=== PATIENT | female | born 1990 | race Caucasian/White ===

== ENCOUNTER 2021-08-06 07:33 | Inpatient (IN) ==
[2021-08-06] MEDS ORDERED: OXYTOCIN 30 UNITS/500 ML BAG IV PRN ×2 (08:41→09:06)
--- NOTE | 2021-08-06 09:24 | History & Physical Report ---
Date of Service August 06, 2021 Assessment & Plan (1) 40 weeks gestation of : (2) PROM (premature rupture of membranes): Plan: Discussed situation with the patient and Dr. Blum who is assuming care of this patient. Offered pit now or short course of expectant management. Patient choose expectant management--Dr. Blmu allowing 4 hours. Recommend pitocin after that. gbs neg. fetus category one. anticipate . Admission and Anticipated Discharge Date Admission Date: August 06, 2021 History of Present Illness Chief Complaint: rom Primary Care Provider: NO PCP Patient is a with iup at 40 1/7 weeks who present c/o lof starting at 6:30 am. Notes +fm, a little blood tinge, no contractions. uncomplicated. Blood Type O Positive 12/24/20 Antibody Screen NEGATIVE 12/24/20 Hemoglobin 10.3 g/dL (12.0-16.0) L 05/13/21 Hematocrit 33.3 % (37-47) L 05/13/21 Mean Corpuscular Volume 82.3 fL (80-100) 12/24/20 Platelet Count 239 K/uL (130-400) 12/24/20 Rubella IgG Antibody Immune (Immune) 12/24/20 Rapid Plasma Reagin Nonreactive (Nonreactive) 12/24/20 Hepatitis B Surface Antigen Neg (Neg) 12/24/20 HIV (1&2) Ab and P24 Ag, 4th Gener Neg (Neg) 12/24/20 Glucose 1 Hour 50 gm Load 110 mg/dl (70-130) 05/13/21 OB Optional Labs: Chlamydia trachomatis RNA NOT DETECTED (NOT DETECTED) 12/24/20 Neisseria gonorrhoeae RNA NOT DETECTED (NOT DETECTED) 12/24/20 low risk panorama cf/sma neg gbs neg Allergies Allergy/AdvReac Type Severity Reaction Status Date / Time Sulfa (Sulfonamide Allergy Mild hives Verified 08/06/21 07:54 Antibiotics) Home Medications Medication Instructions Recorded Confirmed Type docusate sodium 100 mg capsule 100 mg PO BID 08/06/21 08/06/21 History (Colace) doxylamine succinate 25 mg tablet 25 mg PO HS PRN 08/06/21 08/06/21 History (Unisom (doxylamine)) famotidine 20 mg tablet (Pepcid) 20 mg PO DAILY 08/06/21 08/06/21 History ferrous sulfate 325 mg (65 mg 325 mg PO DAILY 08/06/21 08/06/21 History iron) tablet (iron) prenat.vits,josiane,[id number] 1 tab PO DAILY 08/06/21 08/06/21 History pyridoxine (vitamin B6) 100 mg 100 mg PO DAILY 08/06/21 08/06/21 History tablet (Vitamin B-6) Patient History Medical History Varicella vaccination Surgical History [place] teeth extracted Family History Father Hypertension Grandmother (Maternal) Hypertension Mother Carlos's disease Aunt Breast cancer Other Colorectal cancer Denies family history of Ovarian cancer Prostate cancer Social History Smoking Status: Never smoker Second Hand Exposure: Yes; Hx Alcohol Use: No Hx Substance Use: No Preferred Language: Sinhala Communication Ability: Effective Visual Impairment: No Limitations Wood Scrap Handler Required: No Beliefs That Will Affect Care: None marital status: marital status details: Arturo Shepherd (27) [phone] Current Living Situation: Spouse Current Living Situation Comment: lives with , no pets current occupational status: employed 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 Other Information That Helps Us Care for You: No Feels Safe at Home: Yes Safety Concerns: Feels Safe At This Time OB History g1--present STUNT MAN History noncontributory Physical Exam Constitutional: WD/WN, vitals as above Gastrointestinal (Abdomen): soft, gravid, nt Psychiatric: A+Ox3, euthymic affect Genitourinary: sse--+pool, fern sve--3/80/-2 toco--regina efm--140s with mod varibility, accels to 160s, no decels Results & Data ([place]) Vital Signs (Past 12 Hours) Vital Signs Temp Pulse Resp BP 08/06/21 08:01 36.6 C 18 08/06/21 07:48 112 H 121/85 Coding Level of Care Code None Diagnoses 40 weeks gestation of Z3A.40 PROM (premature rupture of membranes) O42.90
[2021-08-06 09:25] LABS: Hematocrit (blood only) 35.3 % (37-47); Mean Corpuscular Hemoglobin 25.1 pg (25-34); Mean Corpuscular Hgb Conc 31.2 g/dL (32-36); Mean Corpuscular Volume 80.4 fL (80-100); Mean Platelet Volume 11.6 fL (7.4-10.4); Platelet Count 194 K/uL (130-400); RDW Coefficient of Variation 15.5 % (11.5-14.5); RDW Standard Deviation 45.7 fL (36.4-46.3); Red Blood Count 4.39 M/uL (4.2-5.4); White Blood Count 10.15 K/uL (4.8-10.8)
[2021-08-06] MEDS: LACTATED RINGER'S 1,000 ML IV PRN ×4 (10:39→18:40)
--- NOTE | 2021-08-06 11:21 | Labor Progress Brief Note ---
Date of Service August 06, 2021 Subjective denies feeling ctx Assessment & Plan (1) PROM (premature rupture of membranes): (2) Encounter for induction of labor: Plan: c/w pit, fhts categ 1. couple aware that i am taking over care. they deny questions. Admission and Anticipated Discharge Date Admission Date: August 06, 2021 Physical Exam Constitutional: WD/WN, vitals as above Genitourinary: OB Exam Monitor Tracing: + external FHT monitor used, + external uterine monitor used (no ctx), + category I and + normal FHT variability pitocin running Results & Data ([place]) Vital Signs (Past 12 Hours) Vital Signs Temp Pulse Resp BP 08/06/21 11:17 76 114/80 08/06/21 10:41 97.9 F 81 20 132/77 08/06/21 09:12 97.9 F 20 08/06/21 08:01 97.9 F 18 08/06/21 07:48 112 H 121/85 Coding Level of Care Code None Diagnoses PROM (premature rupture of membranes) O42.90 Encounter for induction of labor Z34.90
--- NOTE | 2021-08-06 13:10 | Communication Note ---
Date of Service: August 06, 2021 Notified by nurse of 2 elevated bps. Then normalized. Patient without sx per nurse. Urine dip on admission was neg for protein. will monitor and if persists, plan CMP.
[2021-08-06] MEDS ORDERED: CALCIUM CARBONATE 500 MG CHEWABLE TAB PO PRN (14:35)
[2021-08-06] MEDS: ACETAMINOPHEN 325 MG TAB PO PRN ×2 (14:41→19:39)
[2021-08-06] MEDS ORDERED: BUPIVACAINE 0.25% 30 ML VIAL ONE (15:29)
[2021-08-06] MEDS ORDERED: SODIUM CHLORIDE 0.9% INJ 10 ML VIAL ONE (15:29)
[2021-08-06] MEDS ORDERED: ePHEDrine sulfate 50 MG/ML AMP ONE (15:29)
[2021-08-06] MEDS ORDERED: fentaNYL citrate 100 MCG/2 ML VIAL ONE (15:30)
[2021-08-06] MEDS ORDERED: fentaNYL 2MCG/ML ROPIVACAINE 1.25MG/ML 100 ML BAG EPI ONE (15:30)
--- NOTE | 2021-08-06 16:19 | Anesthesiology Consultation ---
Date of Service August 06, 2021 Assessment & Plan (1) Encounter for pre-operative examination: Chart Review Chart Review: Acceptable Risk for Labor Epidural Consults Requested none ASA ASA2 Proposed Anesthesia Anesthesia Type: Labor Epidural Risk / Benefits Reviewed With: PT / POA / Parent / Guardian, Accepts Plan and Informed Consent Obtained History Height/Weight Height: 5 ft 2 in Weight: 95.708 kg Allergies Allergy/AdvReac Type Severity Reaction Status Date / Time Sulfa (Sulfonamide Allergy Mild hives Verified 08/06/21 07:54 Antibiotics) Medications Home Medications Medication Instructions Recorded Confirmed Last Taken docusate sodium 100 mg capsule 100 mg PO BID 08/06/21 08/06/21 07/30/21 (Colace) doxylamine succinate 25 mg tablet 25 mg PO HS PRN 08/06/21 08/06/21 08/05/21 (Unisom (doxylamine)) famotidine 20 mg tablet (Pepcid) 20 mg PO DAILY 08/06/21 08/06/21 08/05/21 ferrous sulfate 325 mg (65 mg 325 mg PO DAILY 08/06/21 08/06/21 07/30/21 iron) tablet (iron) prenat.vits,josiane,[id number]-oodz-[id number] 1 tab PO DAILY 08/06/21 08/06/21 07/30/21 pyridoxine (vitamin B6) 100 mg 100 mg PO DAILY 08/06/21 08/06/21 08/05/21 tablet (Vitamin B-6) Active Medications Generic Name Dose Route Start Last Admin Trade Name Freq PRN Reason Stop Dose Admin Acetaminophen 650 mg 08/06/21 14:35 08/06/21 14:41 Acetaminophen 325 Mg Tab PO 09/05/21 14:34 650 mg Q4H PRN Administration Headache Lactated Ringer's 1,000 mls @ 125 mls/hr 08/06/21 08:41 08/06/21 16:03 Lr IV 08/08/21 08:40 999 mls/hr .Q8H PRN Infusion L&D Protocol Protocol Oxytocin 30 units in 500 mls @ 15 mls/hr 08/06/21 09:06 08/06/21 15:21 Pitocin IV 08/08/21 09:05 0.9 units/hr .Q24H PRN 15 mls/hr Labor Induction/Augmentation Titration Protocol 0.9 UNITS/HR Past Medical History Medical History Varicella vaccination Exercise / Class Metabolic Activity II 4-5 Yardwork/Stairs/Walk up hill Past Family History Family History Father Hypertension Grandmother (Maternal) Hypertension Mother Carlos's disease Aunt Breast cancer Other Colorectal cancer Denies family history of Ovarian cancer Prostate cancer Past Surgical History Surgical History [place] teeth extracted Past Anesthesia History No Hx of Anesthesia Complications and No Family Hx of Anesthesia Complications History of PONV No Hx of PONV and No Hx of Motion Sickness Social History Smoking Status: Never smoker Hx Alcohol Use: No Hx Substance Use: No Physical Exam Vital Signs Last Vital Signs Temp 97.5 F L 08/06/21 15:24 Pulse 63 08/06/21 16:12 Resp 16 08/06/21 15:24 BP 131/87 08/06/21 15:24 Pulse Ox 97 08/06/21 16:12 ENMT Mouth: no dentition abnormality Thyromental Distance: > or= 3.5 Finger Breadths Mallampati Class: II Neck normal visual inspection Respiratory normal respiratory effort Auscultation: lungs clear to auscultation bilaterally Cardiovascular Rate/Rhythm: regular rate and regular rhythm Testing Laboratory Results 08/06/21 09:02 Blood Type O Positive 08/06/21 09:02 Antibody Screen NEGATIVE 08/06/21 09:02
[2021-08-06] MEDS ORDERED: NALOXONE HCL 1 MG in SODIUM CHLORIDE 0.9% 1000ML 1,000 ML IV PRN (16:40)
[2021-08-06] MEDS ORDERED: NALOXONE HCL 0.4 MG/1 ML VIAL/CARP IV PRN (16:40)
[2021-08-06] MEDS ORDERED: fentaNYL 2MCG/ML ROPIVACAINE 1.25MG/ML 100 ML BAG EPI PRN (16:40)
[2021-08-06] MEDS ORDERED: ONDANSETRON INJ 2 MG/ML 2 ML VIAL IV PRN (16:40)
[2021-08-06] MEDS ORDERED: NALBUPHINE HCL INJ 10 MG/ML AMP IV PRN (16:40)
[2021-08-06] MEDS ORDERED: diphenhydrAMINE 50 MG/ML VIAL IV PRN (16:40)
[2021-08-06] MEDS ORDERED: ePHEDrine sulfate 50 MG/ML AMP IV PRN (16:40)
--- NOTE | 2021-08-06 17:16 | Labor Progress Brief Note ---
Date of Service August 06, 2021 Subjective feels comfortable with epidural Assessment & Plan (1) Encounter for induction of labor: (2) PROM (premature rupture of membranes): Plan: c/w pit, good cx change. will now check cmp due to bps. Admission and Anticipated Discharge Date Admission Date: August 06, 2021 Physical Exam Constitutional: WD/WN, vitals as above DBP elevated Genitourinary: Manual OB Exam: + cervical dilation 5 cm, + cervical effacement 90%, + station -2 and + amniotic fluid (arom forebag) OB Exam Monitor Tracing: + external FHT monitor used, + external uterine monitor used (q2-3), + category I and + normal FHT variability on pitocin Results & Data ([facility]) Vital Signs (Past 12 Hours) Vital Signs Temp Pulse Resp BP Pulse Ox 08/06/21 17:12 67 98 08/06/21 17:10 71 123/91 08/06/21 17:07 64 100 08/06/21 17:04 60 100/55 L 08/06/21 17:02 65 98 08/06/21 16:58 63 22 105/55 L 08/06/21 16:57 72 99 08/06/21 16:54 64 22 106/55 L 08/06/21 16:52 65 98 08/06/21 16:47 66 99 08/06/21 16:46 63 102/60 08/06/21 16:44 97.7 F 64 20 107/63 08/06/21 16:42 74 106/57 L 100 08/06/21 16:40 67 20 108/60 08/06/21 16:38 68 20 107/58 L 08/06/21 16:37 70 100 08/06/21 16:36 67 20 112/63 08/06/21 16:35 68 20 122/85 08/06/21 16:32 66 20 115/77 100 08/06/21 16:30 68 123/82 08/06/21 16:27 82 98 08/06/21 16:24 71 94 08/06/21 16:22 71 93 08/06/21 16:18 81 90 08/06/21 16:17 82 96 08/06/21 16:12 63 97 08/06/21 16:07 67 95 08/06/21 16:02 66 96 08/06/21 15:57 68 97 08/06/21 15:52 66 96 08/06/21 15:47 73 97 08/06/21 15:42 67 97 08/06/21 15:24 97.5 F L 73 16 131/87 08/06/21 14:43 97.5 F L 72 16 117/69 08/06/21 14:07 73 138/85 08/06/21 13:01 73 18 129/79 08/06/21 12:46 98.1 F 69 18 161/98 H 08/06/21 12:26 77 162/89 H 08/06/21 12:25 20 08/06/21 11:17 97.7 F 76 18 114/80 08/06/21 10:41 97.9 F 81 20 132/77 08/06/21 09:12 97.9 F 20 08/06/21 08:01 97.9 F 18 08/06/21 07:48 112 H 121/85 Coding Level of Care Code None Diagnoses Encounter for induction of labor Z34.90 PROM (premature rupture of membranes) O42.90
[2021-08-06 18:23] LABS: BUN Creatinine Ratio 14.7 (10-20); Calcium 8.3 mg/dl (8.5-10.1); Creatinine Clr Calc Pharmacy 179.9 ml/min; Est GFR (African American) 149.4 ml/min; Est GFR (Non-African American) 128.9 ml/min; Potassium 3.9 mmol/L (3.5-5.1)
[2021-08-06 18:25] LABS: Albumin Globulin Ratio 0.5 (0.9-2); Bilirubin,Total 0.3 mg/dl (0.2-1)
--- NOTE | 2021-08-06 20:20 | Labor Progress Brief Note ---
Date of Service August 06, 2021 Subjective feels some pressure Assessment & Plan (1) 40 weeks gestation of : (2) PROM (premature rupture of membranes): (3) Encounter for induction of labor: Plan: good cx change. fhts categ 1. anticip soon. Admission and Anticipated Discharge Date Admission Date: August 06, 2021 Physical Exam Constitutional: WD/WN, vitals as above Genitourinary: Manual OB Exam: + cervical dilation 9 cm, + cervical effacement 90% and + station + 1 OB Exam Monitor Tracing: + external FHT monitor used, + external uterine monitor used (q2-3), + category I and + normal FHT variability Results & Data ([facility]) Vital Signs (Past 12 Hours) Vital Signs Temp Pulse Resp BP Pulse Ox 08/06/21 20:13 82 87 L 08/06/21 20:12 74 97 08/06/21 20:07 76 97 08/06/21 20:06 74 85 L 08/06/21 20:03 72 125/88 08/06/21 20:02 79 100 08/06/21 19:57 74 97 08/06/21 19:56 80 89 L 08/06/21 19:52 80 93 08/06/21 19:49 93 H 133/75 08/06/21 19:47 79 95 08/06/21 19:42 77 98 08/06/21 19:37 74 93 08/06/21 19:34 71 120/79 08/06/21 19:32 88 96 08/06/21 19:27 72 98 08/06/21 19:22 65 96 08/06/21 19:18 66 107/66 08/06/21 19:17 67 98 08/06/21 19:12 67 97 08/06/21 19:07 66 97 08/06/21 19:02 97.7 F 64 18 99 08/06/21 18:57 74 98 08/06/21 18:52 72 100 08/06/21 18:49 63 132/73 08/06/21 18:47 67 99 08/06/21 18:42 64 99 08/06/21 18:37 66 99 08/06/21 18:33 63 20 125/71 08/06/21 18:32 70 99 08/06/21 18:27 65 98 08/06/21 18:24 20 08/06/21 18:22 65 100 08/06/21 18:20 71 89 L 08/06/21 18:19 59 L 131/77 08/06/21 18:17 64 98 08/06/21 18:12 60 99 08/06/21 18:07 69 98 08/06/21 18:04 60 139/81 08/06/21 18:02 64 100 08/06/21 18:00 20 08/06/21 17:57 63 99 08/06/21 17:52 61 99 08/06/21 17:48 61 20 113/68 08/06/21 17:47 61 99 08/06/21 17:42 65 99 08/06/21 17:37 60 100 08/06/21 17:32 67 97 08/06/21 17:27 72 89 L 08/06/21 17:25 70 88 L 08/06/21 17:22 65 96 08/06/21 17:17 77 99 08/06/21 17:14 64 20 122/69 08/06/21 17:12 67 98 08/06/21 17:10 71 123/91 08/06/21 17:07 64 100 08/06/21 17:04 60 100/55 L 08/06/21 17:02 65 98 08/06/21 16:58 63 22 105/55 L 08/06/21 16:57 72 99 08/06/21 16:54 64 22 106/55 L 08/06/21 16:52 65 98 08/06/21 16:47 66 99 08/06/21 16:46 63 102/60 08/06/21 16:44 97.7 F 64 20 107/63 08/06/21 16:42 74 106/57 L 100 08/06/21 16:40 67 20 108/60 08/06/21 16:38 68 20 107/58 L 08/06/21 16:37 70 100 08/06/21 16:36 67 20 112/63 08/06/21 16:35 68 20 122/85 08/06/21 16:32 66 20 115/77 100 18 16:30 68 123/82 08/06/21 16:27 82 98 08/06/21 16:24 71 94 08/06/21 16:22 71 93 12/18/21 16:18 81 90 08/06/21 16:17 82 96 08/06/21 16:12 63 97 08/06/21 16:07 67 95 08/06/21 16:02 66 96 08/06/21 15:57 68 97 08/06/21 15:52 66 96 08/06/21 15:47 73 97 08/06/21 15:42 67 97 08/06/21 15:24 97.5 F L 73 16 131/87 08/06/21 14:43 97.5 F L 72 16 117/69 08/06/21 14:07 73 138/85 08/06/21 13:01 73 18 129/79 08/06/21 12:46 98.1 F 69 18 161/98 H 08/06/21 12:26 77 162/89 H 08/06/21 12:25 20 08/06/21 11:17 97.7 F 76 18 114/80 08/06/21 10:41 97.9 F 81 20 132/77 08/06/21 09:12 97.9 F 20 Coding Level of Care Code None Diagnoses 40 weeks gestation of Z3A.40 PROM (premature rupture of membranes) O42.90 Encounter for induction of labor Z34.90
[2021-08-07] MEDS ORDERED: AMMONIA, AROMATIC INHAL 1 EA AMP INH ONE (01:25)
--- NOTE | 2021-08-07 02:08 | Delivery Summary ---
Vaginal Delivery Summary Date of Service August 07, 2021 Vaginal Delivery Summary and 2nd Degree LAC The patient dilated to complete and pushed to deliver a viable female Apgars 8 and 9 via over 2nd degree perineal laceration. Mouth and nose bulb suctioned at perineum. Shoulders and body delivered with ease. was vigorous and crying at . Cord clamped at 30 seconds of life and to maternal abdomen where the cord was then doubly clamped and cut. Placenta delivered spontaneously and intact, three-vessel cord. Hemostasis achieved with dilute pitocin and uterine massage and drainage of the bladder for approximately 75 cc under sterile conditions. Cervix and sulci intact. Laceration repaired in layers in routine fashion with 3-0 vicryl. EBL 300 cc. Mother and baby stable recovery[place] [facility] [place] Charge Delivery Type Details: and 2nd Degree LAC
[2021-08-07] MEDS ORDERED: OXYTOCIN 30 UNITS/500 ML BAG IV PRN (02:12)
[2021-08-07] MEDS ORDERED: DIPHTHERIA/TETANUS/PERTUSSIS 0.5 ML SYR/VIAL IM ONE (02:12)
[2021-08-07] MEDS ORDERED: BENZOCAINE 20% AER SPR 82.5 GM CAN EXT PRN (02:12)
[2021-08-07] MEDS ORDERED: SUPERCREAM 0.870% 15 GM JAR EXT PRN (02:12)
[2021-08-07] MEDS ORDERED: HYDROCORTISONE ACETATE 25 MG SUPP PR PRN (02:12)
[2021-08-07] MEDS ORDERED: oxyCODONE/ACETAMINOPHEN 5mg/325mg TAB PO PRN (02:12)
[2021-08-07] MEDS ORDERED: OXYTOCIN 20 UNITS in LACTATED RINGER'S 1,000 ML IV SCH (02:15)
[2021-08-07] MEDS: IBUPROFEN 600 MG TAB PO PRN ×5 (03:56→23:38)
--- NOTE | 2021-08-07 04:53 | Anesthesiology Progress Note ---
Date of Service August 07, 2021 Anesthesia Post Procedure Vital Signs Vital Signs: Temp Pulse Resp BP Pulse Ox 08/07/21 04:16 83 129/61 08/07/21 04:00 100 H 127/62 08/07/21 03:15 99 H 106/57 L 08/07/21 03:00 93 H 104/60 08/07/21 02:45 108 H 106/56 L 08/07/21 02:30 102 H 113/55 L 08/07/21 02:15 99 H 117/57 L 08/07/21 02:00 93 H 113/57 L 08/07/21 01:48 91 H 119/56 L 08/07/21 01:47 102 H 94 08/07/21 01:42 102 H 94 08/07/21 01:37 92 H 96 08/07/21 01:34 99 H 87 L 08/07/21 01:32 93 H 98 08/07/21 01:27 114 H 97 08/07/21 01:22 98 H 97 08/07/21 01:21 100 H 84 L 08/07/21 01:20 89 121/63 08/07/21 01:17 111 H 98 08/07/21 01:15 90 84 L 08/07/21 01:12 88 99 08/07/21 01:07 84 96 08/07/21 01:03 108 H 88 L 08/07/21 01:02 104 H 96 08/07/21 00:57 96 H 86 L 08/07/21 00:52 78 97 08/07/21 00:48 76 109/61 08/07/21 00:47 76 97 08/07/21 00:42 72 97 08/07/21 00:37 75 98 08/07/21 00:33 81 112/59 L 08/07/21 00:32 87 98 08/07/21 00:27 82 98 08/07/21 00:22 82 100 08/07/21 00:18 81 114/66 08/07/21 00:17 88 97 08/07/21 00:12 85 98 08/07/21 00:07 86 94 08/07/21 00:04 89 139/85 89 L 08/07/21 00:02 82 97 08/06/21 23:57 101 H 97 12/18/21 23:55 82 86 L 08/06/21 23:52 76 99 08/06/21 23:49 85 124/75 08/06/21 23:48 84 115/76 08/06/21 23:47 80 98 08/06/21 23:42 83 100 08/06/21 23:37 80 100 08/06/21 23:36 91 H 85 L 08/06/21 23:33 36.4 C L 18 08/06/21 23:32 91 H 100 08/06/21 23:28 97 H 85 L 08/06/21 23:27 89 96 08/06/21 23:22 101 H 96 08/06/21 23:19 87 84 L 08/06/21 23:18 78 120/73 08/06/21 23:17 85 100 08/06/21 23:12 87 98 08/06/21 23:08 94 H 86 L 08/06/21 23:07 87 95 08/06/21 23:03 85 128/74 08/06/21 23:02 88 96 08/06/21 22:57 100 H 100 08/06/21 22:52 80 100 08/06/21 22:49 77 117/73 08/06/21 22:47 75 100 08/06/21 22:42 80 99 08/06/21 22:38 77 82 L 08/06/21 22:37 80 99 08/06/21 22:33 81 127/75 08/06/21 22:32 82 98 08/06/21 22:27 89 99 08/06/21 22:22 95 H 97 08/06/21 22:20 92 H 84 L 08/06/21 22:17 101 H 99 08/06/21 22:12 83 90 08/06/21 22:07 76 100 08/06/21 22:03 75 128/77 08/06/21 22:02 76 100 08/06/21 21:57 79 96 08/06/21 21:53 80 82 L 08/06/21 21:52 81 98 1821 21:48 77 115/77 08/06/21 21:47 76 99 1821 21:45 81 83 L 08/06/21 21:42 75 99 08/06/21 21:37 77 98 08/06/21 21:33 77 113/74 12/18/21 21:32 81 92 18/21 21:29 81 87 L 18/21 21:27 79 99 18/21 21:22 82 100 1821 21:20 78 87 L 18/21 21:19 78 127/71 18/21 21:18 36.6 C 18 18/ 21:17 77 100 1821 21:13 77 84 L 1821 21:12 77 89 L 1821 21:07 72 99 18/21 21:04 73 117/82 18 21:02 76 100 18/21 21:01 83 86 L 18 20:57 95 H 96 18 20:52 79 93 1821 20:51 79 86 L 1821 20:50 75 137/85 18/21 20:47 72 99 1821 20:42 77 95 18 20:37 75 100 1821 20:34 72 131/87 1821 20:32 72 98 1821 20:29 76 87 L 18/21 20:27 73 100 1821 20:22 72 100 1821 20:20 78 137/84 18 20:19 88 84 L 18/21 20:17 88 98 1821 20:13 82 87 L 1821 20:12 74 97 1821 20:07 76 97 1821 20:06 74 85 L 1821 20:03 72 125/88 1821 20:02 79 100 18/21 19:57 74 97 18/21 19:56 80 89 L 18/21 19:52 80 93 18/21 19:49 93 H 133/75 18/21 19:47 79 95 18/21 19:42 77 98 18/21 19:37 74 93 18/21 19:34 71 120/79 18/21 19:32 88 96 18/21 19:27 72 98 1821 19:22 65 96 18/21 19:18 66 107/66 08/06/21 19:17 67 98 18 19:12 67 97 08/06/21 19:07 66 97 08/06/21 19:02 36.5 C 64 18 99 08/06/21 18:57 74 98 1821 18:52 72 100 08/06/21 18:49 63 132/73 18 18:47 67 99 18 18:42 64 99 08/06/21 18:37 66 99 18 18:33 63 20 125/71 08/06/21 18:32 70 99 08/06/21 18:27 65 98 08/06/21 18:24 20 08/06/21 18:22 65 100 08/06/21 18:20 71 89 L 08/06/21 18:19 59 L 131/77 08/06/21 18:17 64 98 08/06/21 18:12 60 99 08/06/21 18:07 69 98 08/06/21 18:04 60 139/81 08/06/21 18:02 64 100 08/06/21 18:00 20 08/06/21 17:57 63 99 08/06/21 17:52 61 99 18 17:48 61 20 113/68 18 17:47 61 99 18 17:42 65 99 08/06/21 17:37 60 100 08/06/21 17:32 67 97 18 17:27 72 89 L 08/06/21 17:25 70 88 L 08/06/21 17:22 65 96 18 17:17 77 99 1821 17:14 64 20 122/69 18 17:12 67 98 18/21 17:10 71 123/91 18 17:07 64 100 18 17:04 60 100/55 L 18 17:02 65 98 18/21 16:58 63 22 105/55 L 18/ 16:57 72 99 18/21 16:54 64 22 106/55 L 18/21 16:52 65 98 18/21 16:47 66 99 1821 16:46 63 102/60 08/06/21 16:44 36.5 C 64 20 107/63 08/06/21 16:42 74 106/57 L 100 08/06/21 16:40 67 20 108/60 08/06/21 16:38 68 20 107/58 L 08/06/21 16:37 70 100 08/06/21 16:36 67 20 112/63 08/06/21 16:35 68 20 122/85 08/06/21 16:32 66 20 115/77 100 08/06/21 16:30 68 123/82 08/06/21 16:27 82 98 08/06/21 16:24 71 94 08/06/21 16:22 71 93 08/06/21 16:18 81 90 08/06/21 16:17 82 96 08/06/21 16:12 63 97 08/06/21 16:07 67 95 08/06/21 16:02 66 96 08/06/21 15:57 68 97 08/06/21 15:52 66 96 08/06/21 15:47 73 97 08/06/21 15:42 67 97 08/06/21 15:24 36.4 C L 73 16 131/87 08/06/21 14:43 36.4 C L 72 16 117/69 08/06/21 14:07 73 138/85 08/06/21 13:01 73 18 129/79 08/06/21 12:46 36.7 C 69 18 161/98 H 08/06/21 12:26 77 162/89 H 08/06/21 12:25 20 08/06/21 11:17 36.5 C 76 18 114/80 08/06/21 10:41 36.6 C 81 20 132/77 08/06/21 09:12 36.6 C 20 08/06/21 08:01 36.6 C 18 08/06/21 07:48 112 H 121/85 Pain Intensity Bilateral Abdomen: Pain Intensity: 3 Transfer of Care Handoff Completed per policy Notes Mental Status: alert / awake / arousable and participated in evaluation Patient Amnestic to Procedure: Yes Nausea / Vomiting: adequately controlled Pain: adequately controlled Airway Patency, RR, SpO2: stable & adequate BP & HR: stable & adequate Hydration State: stable & adequate Anesthetic Complications: no major complications apparent and Pt Satisfied with anesthetic care
[2021-08-07] MEDS: DOCUSATE SODIUM 100 MG CAP PO SCH ×2 (08:44→19:39)
[2021-08-07] MEDS: PRENATAL VITAMIN 1 TAB PO SCH (08:44)
[2021-08-08] MEDS: IBUPROFEN 600 MG TAB PO PRN ×2 (05:37→23:58)
--- NOTE | 2021-08-08 07:33 | Obstetrical Progress Note ---
Date of Service August 08, 2021 Assessment & Plan (1) Normal spontaneous vaginal delivery: Plan: 31 yo , now, , PPD 1 s/p at 40 weeks -Possible D/C pending how patient feels later in the day -Continue routine care -Vitals reviewed- HDS, afebrile -O+ blood, GBS-, Rubella immune -Encouraged ambulation, regular diet -Pain control with ibuprofen, acetaminophen PRN -Encouraged -F/u in [address] Blum Admission and Anticipated Discharge Date Admission Date: August 06, 2021 Supervising Physician Co-Signing Physician Notes Resident Physician Supervision Note: I interviewed and examined the patient. Discussed with Dr. Ryna and agree with findings and plan as documented in the note. Any exceptions or clarifications are listed here: doing well just feels sore, working on . went over instructions pp but may or maynot stay until tomorrow. rh pos, ri. routine care. Documented By: Lulu Blum MD, FACOG Subjective PPD 1 s/p . Patient seen and examined at bedside. Reports no acute overnight events. Ambulating and voiding. Passing gas, but no stool. Regular diet w/o N/V. Lochia moderate per patient. Breast feeding, but is reporting b/l breast pain. Pain 5/10 that improves with motrin. Review of Systems Review of Systems: Denies fevers/chills. Denies dyspnea, cough. Denies chest pain. Denies dysuria. Denies headache. Denies back pain. Physical Exam Physical Exam: General: Alert, oriented, no acute distress Cardiac: Regular rate and rhythm, normal S1, S2. No murmurs appreciated. Respiratory: Clear to auscultation b/l with good air flow entry, symmetric chest rise and fall. No wheezes or crackles. No increased work of breathing or accessory muscle use Abdomen: Soft, nontender, nondistended. Fundus firm and palpable at 1 cm below umbilicus. No guarding or rebound. Skin: No rashes or lesions Extremities: Warm, dry, well-perfused with capillary refill <2s b/l.1+ pitting edema LE b/l. No erythema. Negative Rocio's sign b/l. Results & Data ([facility]) Vital Signs (Past 12 Hours) Vital Signs Temp Pulse Resp BP Pulse Ox 08/07/21 23:30 36.6 C 97 H 16 124/67 99 08/07/21 19:30 36.5 C 110 H 16 130/86 98
[2021-08-08] MEDS: ACETAMINOPHEN 325 MG TAB PO PRN ×3 (08:18→16:43)
[2021-08-08] MEDS: DOCUSATE SODIUM 100 MG CAP PO SCH ×2 (08:19→20:11)
[2021-08-08] MEDS: PRENATAL VITAMIN 1 TAB PO SCH (08:19)
--- NOTE | 2021-08-09 05:37 | Obstetrical Progress Note ---
Date of Service August 09, 2021 Assessment & Plan (1) Normal spontaneous vaginal delivery: Plan: 31 yo , now, , PPD 2 s/p at 40 weeks -Expect D/C today -Continue routine care -Vitals reviewed- HDS, afebrile -O+ blood, GBS-, Rubella immune -Encouraged ambulation, regular diet -Pain control with ibuprofen, acetaminophen PRN -Encouraged -F/u in [address] Blum Admission and Anticipated Discharge Date Admission Date: August 06, 2021 Supervising Physician Co-Signing Physician Notes Resident Physician Supervision Note: I interviewed and examined the patient. Discussed with Dr. Ryan and agree with findings and plan as documented in the note. Any exceptions or clarifications are listed here: Patient was prepared for D/C by the MD yesterday but elected to stay overnight. Has continued to do well, has no changes or questions/concerns today to address. Documented By: Jessica Cornejo MD, FACOG Subjective PPD 2 s/p . Patient seen and examined at bedside. Reports no acute overnight events. Ambulating and voiding. Passing gas and had a BM yesterday. Regular diet w/o N/V. Lochia moderate per patient. Pt is breast feeding and is currently supplementing with formula as this helps her breast tenderness from yesterday. Pain is 4/10 that improves with motrin. Pt feels comfortable with going home today after having seen the counselor yesterday. Pt reports no other complaints. Review of Systems Review of Systems: Denies fevers/chills. Denies dyspnea, cough. Denies chest pain. Denies dysuria. Denies back pain. Physical Exam Physical Exam: General: Alert, oriented, no acute distress Cardiac: Regular rate and rhythm, normal S1, S2. No murmurs appreciated. Respiratory: Clear to auscultation b/l with good air flow entry, symmetric chest rise and fall. No wheezes or crackles. No increased work of breathing or accessory muscle use Abdomen: Soft, nontender, nondistended. Fundus firm and palpable at 2 cm below umbilicus. No guarding or rebound. Skin: No rashes or lesions Extremities: Warm, dry, well-perfused with capillary refill <2s b/l.1+ pitting edema LE b/l. No erythema. Negative Rocio's sign b/l. Results & Data ([facility]) Vital Signs (Past 12 Hours) Vital Signs Temp Pulse Resp BP 08/08/21 23:45 36.6 C 80 18 132/84
[2021-08-09] MEDS: IBUPROFEN 600 MG TAB PO PRN (08:17)
[2021-08-09] MEDS: PRENATAL VITAMIN 1 TAB PO SCH (08:17)
[2021-08-09] MEDS: DOCUSATE SODIUM 100 MG CAP PO SCH (08:17)
== END 2021-08-09 10:55 | disposition home or self-care (01) | DRG 807 ==
LOC: OPB 07:33 → 4S1 07:34 → 4S2 08-07 05:10